=== PATIENT | male | born 1960 | race Caucasian/White ===

== ENCOUNTER 2024-08-06 07:13 | Day surgery (SDC) | payer MEDICAID ==
[~2024-08-06] VITALS: Ht 165.1 cm; Wt 52.2 kg
[~2024-08-06 07:13] MED LIST: DOCU50LI40 PO; OXYC-763 PO
[2024-08-06] MEDS: SODIUM CHLORIDE 0.9% 1,000 ML IV ONE (08:28)
[2024-08-06] MEDS ORDERED: OXYGEN THERAPY IH SCH (09:30)
[2024-08-06] MEDS ORDERED: LIDOCAINE/PF 2% 5 ML VIAL IM ONE (12:00)
[2024-08-06] MEDS ORDERED: ATROPINE SULFATE 0.1 MG/ML 10 ML SYRINGE IVP ONE (12:00)
[2024-08-06] MEDS ORDERED: NALOXONE HCL 0.4 MG/ML VIAL ONE (12:00)
[2024-08-06] MEDS ORDERED: FLUMAZENIL 0.1 MG/ML 5 ML VIAL IVP ONE (12:00)
[2024-08-06] MEDS ORDERED: SODIUM TETRADECYL SULFATE 3% 60 MG/2 ML VIAL IVP ONE (12:00)
[2024-08-06] MEDS ORDERED: PROPOFOL 1% 20 ML VIAL IVP ONE (12:00)
[2024-08-06] MEDS ORDERED: DiphenhydrAMINE HCL 50 MG/ML VIAL ONE (12:00)
[2024-08-06] MEDS ORDERED: EPINEPHrine 1:10,000 [1 MG/10 ML] SYRINGE ONE (12:00)
== END 2024-08-06 10:30 | disposition home or self-care (01) ==
LOC: SURGERY 07:13
PROVIDERS: ATTEND Specialist
DX: R93.3 Abnormal findings on diagnostic imaging of other parts of digestive tract (principal); C19 Malignant neoplasm of rectosigmoid junction; Z79.891 Long term (current) use of opiate analgesic; Z79.899 Other long term (current) drug therapy; Z83.3 Family history of diabetes mellitus
CPT/HCPCS: 45381; 45380; 88305; C1769; J0461; J2704; J1200; J0171; J3490 ×3; J2310